=== PATIENT | female | born 1990 | race Caucasian/White ===

== ENCOUNTER 2018-12-29 08:20 | Emergency (ER) | payer BC, MEDICAID ==
[~2018-12-29] VITALS: Ht 165.1 cm; Wt 71.8 kg
--- NOTE | 2018-12-29 08:55 | NUR ---
PT STATES SHE GETS HOT THEN COLD AND SWEATY, BODY ACHES. PT ATTRIBUTES HER SYMPTOMS TO NOT HAVING ANY OPIOIDS FOR 2 DAYS
[2018-12-29] MEDS ORDERED: KETOROLAC 30 MG/1 ML ONE (09:21)
[2018-12-29] MEDS ORDERED: ONDANSETRON ODT 4 MG ONE (09:21)
[2018-12-29] MEDS ORDERED: ONDANSETRON ODT 4 MG PO ONE (09:30)
[2018-12-29] MEDS ORDERED: KETOROLAC 30 MG/1 ML IM ONE (09:30)
[2018-12-29 09:37] LABS: HCG UR SG 1.032 (1.003-1.030)
[2018-12-29 09:43] LABS: MICROSCOPIC INDICATED
--- NOTE | 2018-12-29 10:04 | NUR ---
PT STATES NO IMPROVEMENT IN PAIN SINCE MEDICATED. ANXIOUS, SITTING AT EDGE OF [place]ERHART[place]. AWAITING RE-EVAL
[2018-12-29 10:05] VITALS: BP 127/79
== END 2018-12-29 10:29 | disposition home or self-care (01) ==
LOC: ED 10:17
DX: R52 Pain, unspecified (principal); R11.0 Nausea; F17.210 Nicotine dependence, cigarettes, uncomplicated
CPT/HCPCS: 81001; 81025; 96372; 99283; J1885; Q0162